=== PATIENT | female | born 1935 | race Caucasian/White ===

== ENCOUNTER 2020-03-12 08:50 | Inpatient (IN) | payer MEDICARE ==
--- NOTE | 2020-03-12 09:11 | RADIOLOGY REPORT (SQ) ---
EXAM DESCRIPTION: CT HEAD WITHOUT IMAGES COMPLETED DATE/TIME: 03/12/2020 9:01 am REASON FOR STUDY: STROKE ALERT COMPARISON: None. TECHNIQUE: Axial images acquired through the brain without intravenous contrast. Images reviewed wi th bone, brain and subdural windows. Additional sagittal and coronal reconstructions were generated. Images stored on PACS. All CT scanners at this facility use dose modulation, iterative reconstruction, and/or weight based d osing when appropriate to reduce radiation dose to as low as reasonably achievable (ALARA). [facility]: Dose Right [facility]: CareDose [facility]: Dose Right [facility]: Teradose 4D [facility]: [email or web address] RADIATION DOSE: mGy. LIMITATIONS: None. FINDINGS: VENTRICLES: Prominent. CEREBRUM: No masses. No hemorrhage. No midline shift. Areas of low density in the white matter mos t likely due to chronic micro-vascular ischemic change. No evidence for acute infarction. CEREBELLUM: No masses. No hemorrhage. No alteration of density. No evidence for acute infarction. EXTRAAXIAL SPACES: Age-related involutional change. No fluid collections. No masses. ORBITS AND GLOBE: No intra- or extraconal masses. Normal contour of globe without masses. CALVARIUM: No fracture. PARANASAL SINUSES: No fluid or mucosal thickening. SOFT TISSUES: No mass or hematoma. OTHER: No other significant finding. IMPRESSION: CHRONIC CHANGES OF ATROPHY AND MICROVASCULAR ISCHEMIA. NO ACUTE PROCESS. EVIDENCE OF ACUTE STROKE: NO. COMMENT: Pertinent positive or negative findings of the imaging study reported as a CRITICAL EXAM t porsha Kumar at09:03 on 03/12/2020. Category of Critical Exam: Stroke protocol TECHNICAL DOCUMENTATION: JOB ID: [id number] Quality ID # [id number]: Final reports with documentation of one or more dose reduction techniques (e.g., Au tomated exposure control, adjustment of the mA and/or kV according to patient size, use of iterative reconstruction technique) 2010 [employer]- All Rights Reserved Reading location - IP/workstation name: [email or web address]
--- NOTE | 2020-03-12 09:17 | ER Document Report ---
ED Neuro Symptoms/Deficit - General Chief Complaint: S/S of Possible Stroke Stated Complaint: POSSIBLE STROKE Time Seen by Provider: 03/12/20 09:07 Primary Care Provider: ALEXI GRIGGS MD [HONORARY] - Follow up as needed Notes: 84-year-old female was brought in via EMS for black tarry stool and abdominal pain. While the patient was getting on the stretcher she stood up and had a syncopal episode. After that she was slurring her speech. This has nearly resolved. EMS called a stroke alert. The patient complains of epigastric abdominal pain. Denies any extremity numbness tingling or weakness. She has a history of dementia. She is to her baseline. The patient denies any fever chills cough or sore throat. Denies nausea vomiting but has had loose stools. States the stools are black and tarry like. The patient denies a history of abdominal pain but I do not think she is reliable due to her dementia. D escribes the pain as burning in her epigastrium. It is severe does not radiate. - Related Data Allergies/Adverse Reactions: No Known Allergies Allergy (Unverified 03/12/20 09:44) Past Medical History - Social History Smoking Status: Unknown if Ever Smoked Family History: Reviewed & Not Pertinent Review of Systems - Review of Systems Constitutional: denies: Chills, Fever Cardiovascular: denies: Chest pain Respiratory: Stridor Gastrointestinal: Abdomen distended, Abdominal pain, Diarrhea, Nausea, Vomiting, Black stools Genitourinary: denies: Hematuria Skin: No symptoms reported Neurological/Psychological: Lost consciousness, Speech impairment -: Yes All other systems reviewed and negative Physical Exam - Vital signs Vitals: Pulse Ox 100 03/12/20 08:51 - Notes Notes: GENERAL_APPEARANCE: well_nourished, alert, cooperative, acutely ill-appearing VITALS: reviewed, see vital signs table. HEAD: no_swelling\tenderness on the head. EYES: PERRL, EOMI, conjunctiva_clear. NOSE: no_nasal_discharge. MOUTH: (-)decreased moisture. THROAT: no_tonsilar_inflammation, no_airway_obstruction. no_lymphadenopathy NECK: supple, no_neck_tenderness, (-)thyromegaly. BACK: no_back_tenderness. CHEST_WALL: no_chest_tenderness. LUNGS: no_wheezing, no_rales, no_rhonchi, (-)accessory muscle use, good air exchange bilateral. HEART: normal_rate, normal_rhythm, normal_S1, normal_S2, (-)S3, (-)S4, no_m urmur, no_rub. ABDOMEN: Severe abdominal pain all 4 quadrants mainly epigastrium. No rebound or guarding is noted EXTREMITIES: good pulses in all_extremities, no_swelling\tenderness in the extremities, no_edema. SKIN: warm, dry, pale_color, no_rash. MENTAL_STATUS: speech_clear, oriented_7 place but not time, normal_affect, responds_appropriately to questions. NEURO: Neg Motor or Sensory Deficits on exam, CN 2-12 intact, DTR 2+ symmetric x 4, No cerbellar signs Course - Re-evaluation Re-evalutation: 03/12/20 09:16 84-year-old female presents to the ER with black tarry stools and severe abdominal pain. When the patient stood up the patient had a syncopal episode. When the patient awoke she slurred her speech EMS called a stroke alert. Patient seems baseline when I see her here. NIH stroke scale is 0. Her abdomen is exquisitely tender. The patient has black tarry stools. I do not believe this to be a stroke likely she slurred her speech after syncope. With any kind of diarrhea or vomiting she may be dry and dehydrated and orthostatic. Chest x-ray shows free intraperitoneal air. We will give the patient IV antibiotics and a dose of IV Protonix. Will contact surgery. 03/12/20 10:26 The patient has been giving IV Protonix we will transfuse with blood. IV fluids. I have given IV Protonix. Have spoken with surgery Dr. Molina. He will see the patient but due to the patient's age and comorbidities he would like medicine to admit. I have spoken with Dr. Vilchis. He requests an abdominal CT and will happily admit. - Vital Signs Vital signs: Temp Pulse Resp BP Pulse Ox 96.6 F L 25 H 110/56 L 99 03/12/20 09:46 03/12/20 09:31 03/12/20 09:31 03/12/20 09:31 - Laboratory Result Diagrams: 03/12/20 09:20 03/12/20 09:20 Laboratory results interpreted by me: 03/12/20 03/12/20 03/12/20 09:20 09:20 09:20 WBC 17.8 H RBC 2.93 L Hgb 7.6 L Hct 24.7 L MCH 25.8 L MCHC 30.6 L RDW 18.8 H Plt Count 459 H Seg Neuts % (Manual) 81 H Band Neutrophils % 2 L Lymphocytes % (Manual) 10 L Abs Neuts (Manual) 14.8 H APTT 22.2 L Sodium 127.0 L Potassium 3.3 L Carbon Dioxide 17 L BUN 30 H Est GFR ( Amer) 55 L Est GFR (MDRD) Non-Af 46 L Glucose 207 H POC Glucose Creatine Kinase 23 L Total Protein 5.6 L Albumin 3.0 L Crossmatch 03/12/20 03/12/20 09:20 09:23 WBC RBC Hgb Hct MCH MCHC RDW Plt Count Seg Neuts % (Manual) Band Neutrophils % Lymphocytes % (Manual) Abs Neuts (Manual) APTT Sodium Potassium Carbon Dioxide BUN Est GFR ( Amer) Est GFR (MDRD) Non-Af Glucose POC Glucose 205 H Creatine Kinase Total Protein Albumin Crossmatch See Detail - Diagnostic Test Radiology reviewed: Image reviewed Radiology results interpreted by me: 03/12/20 10:26 Chest X-Ray 03/12/20 00:00 IMPRESSION: 1. No acute findings in the chest. 2. Extensive pneumoperitoneum consistent with ruptured viscus. Head CT 03/12/20 00:00 IMPRESSION: CHRONIC CHANGES OF ATROPHY AND MICROVASCULAR ISCHEMIA. NO ACUTE PROCESS. EVIDENCE OF ACUTE STROKE: NO. Critical Care Note - Critical Care Note Total time excluding time spent on procedures (mins): 33 Discharge - Discharge Clinical Impression: Free intraperitoneal air, Acute upper GI bleeding Condition: Fair Disposition: ADMITTED INPATIENT Admitting Provider: Eleanor (Hospitalist) Unit Admitted: IMCU Referrals: ALEXI GRIGGS MD [HONORARY] - Follow up as needed
[2020-03-12] MEDS ORDERED: PIPERACILLIN/TAZOBACTAM 3.375 GM VIAL IV ONE (09:18)
[2020-03-12] MEDS ORDERED: PANTOPRAZOLE SODIUM 40 MG VIAL IV ONE ×2 (09:18→12:49)
--- NOTE | 2020-03-12 09:20 | RADIOLOGY REPORT (SQ) ---
EXAM DESCRIPTION: CHEST SINGLE VIEW IMAGES COMPLETED DATE/TIME: 03/12/2020 9:12 am REASON FOR STUDY: STROKE ALERT COMPARISON: None. EXAM PARAMETERS: NUMBER OF VIEWS: One view. TECHNIQUE: Single frontal radiographic view of the chest acquired. RADIATION DOSE: NA LIMITATIONS: None. FINDINGS: LUNGS AND PLEURA: No opacities, masses or pneumothorax. No pleural effusion. MEDIASTINUM AND HILAR STRUCTURES: No masses. Contour normal. HEART AND VASCULAR STRUCTURES: Heart normal in size. Normal vasculature. BONES: No acute findings. HARDWARE: None in the chest. OTHER: Extensive pneumoperitoneum consistent with perforated viscus. IMPRESSION: 1. No acute findings in the chest. 2. Extensive pneumoperitoneum consistent with ruptured viscus. COMMENT: Pertinent findings on the imaging study reported as a CRITICAL RESULT to Dr. Kumar At09:1 4 on 03/12/2020. Category of Critical Result: Pneumoperitoneum TECHNICAL DOCUMENTATION: JOB ID: [id number] 2010 [employer]- All Rights Reserved Reading location - IP/workstation name: [email or web address]
[2020-03-12 09:40] LABS: INTERNATIONAL RATION (INR) 1.08; PARTIAL THROMBOPLASTIN TIME 22.2 SEC (23.5-35.8)
[2020-03-12] MEDS ORDERED: ONDANSETRON HCL INJ/PF 4 MG/2 ML SDV IV ONE (09:43)
[2020-03-12] MEDS ORDERED: FENTANYL CITRATE INJ/PF 100 MCG/2 ML AMPUL IV ONE (09:43)
[2020-03-12 09:48] LABS: HEMATOCRIT 24.7 % (36.0-47.0); MEAN CORPUSCULAR HEMOGLOBIN 25.8 pg (27.0-33.4); MEAN CORPUSCULAR HGB CONC 30.6 g/dL (32.0-36.0); MEAN CORPUSCULAR VOLUME 84 fl (80-97); RED BLOOD COUNT 2.93 10^6/uL (3.72-5.28); RED CELL DISTRIBUTION WIDTH 18.8 % (11.5-14.0); WHITE BLOOD COUNT 17.8 10^3/uL (4.0-10.5)
[2020-03-12 09:52] LABS: HEMOGLOBIN 7.6 g/dL (12.0-15.5)
[2020-03-12 10:00] LABS: APPEARANCE,URINE CLEAR; BILIRUBIN,URINE NEGATIVE (NEGATIVE); COLOR,URINE YELLOW; GLUCOSE, URINE NEGATIVE (NEGATIVE); KETONES,URINE NEGATIVE (NEGATIVE); LEUKOCYTE ESTERASE,URINE NEGATIVE (NEGATIVE); NITRITE,URINE NEGATIVE (NEGATIVE); PROTEIN,URINE NEGATIVE (NEGATIVE); URINE SPECIFIC GRAVITY 1.014; UROBILINOGEN,URINE NEGATIVE mg/dL (<2.0)
[2020-03-12 10:03] LABS: ALKALINE PHOSPHATASE 46 U/L (38-126); ANION GAP 11 (5-19); ASPARTATE AMINO TRANSFERASE 14 U/L (14-36); BILIRUBIN,TOTAL 0.2 mg/dL (0.2-1.3); BLOOD UREA NITROGEN 30 mg/dL (7-20); CALCIUM 8.6 mg/dL (8.4-10.2); CARBON DIOXIDE 17 mmol/L (22-30); CHLORIDE 99 mmol/L (98-107); CREATINE KINASE 23 U/L (30-135); GLUCOSE 207 mg/dL (75-110); POTASSIUM 3.3 mmol/L (3.6-5.0); TOTAL PROTEIN 5.6 g/dL (6.3-8.2)
[2020-03-12 10:13] LABS: CREATINE KINASE MB 1.02 ng/mL (<4.55)
[2020-03-12 10:15] LABS: ABSOLUTE MONOCYTES # (MANUAL) 1.1 10^3/uL (0.1-1.4); BAND NEUTROPHILS % (MANUAL) 2 % (3-5); BASOPHILS % (MANUAL) 0 % (0-2); EOSINOPHILS % (MANUAL) 0 % (0-6); LYMPHOCYTES % (MANUAL) 10 % (13-45); MONOCYTES % (MANUAL) 6 % (3-13); NUCLEATED RED BLOOD CELLS 2 /100 WBC (0); SEGMENTED NEUTROPHILS % (MAN) 81 % (42-78); TOTAL CELLS COUNTED 100
[2020-03-12] MEDS ORDERED: NORMAL SALINE 250 ML IV PRN ×2 (10:16)
[2020-03-12 10:18] LABS: ANISOCYTOSIS 2+; BURR CELLS 2+; HYPOCHROMASIA 1+; OVALOCYTES 2+; PLATELET COMMENT INCREASED; POIKILOCYTOSIS 2+; POLYCHROMASIA 1+; SCHISTOCYTES 1+; TEAR DROP CELLS 1+
[2020-03-12 10:19] LABS: PLATELET CLUMPS PRESENT; PLATELET COUNT 459 10^3/uL (150-450); TROPONIN I < 0.012 ng/mL
[2020-03-12] MEDS ORDERED: NORMAL SALINE 1000 ML 1,000 ML IV ONE (10:21)
--- NOTE | 2020-03-12 11:09 | PDOC H&P ---
History of Present Illness Admission Date/PCP: DARY ZAMARRIPA MD Patient complains of: Abdominal pain History of Present Illness: MELVIN PHILLIPS is a 84 year old female Patient presents the emergency department via ground rescue according to patient's daughter, Shanice, at bedside because of a progressive weakness, anorexia, progressive abdominal pain, and low blood pressure. According to patient's daughter, over a week ago the patient was in her usual state of acceptable health, living alone, but next to her house, with dementia. Last week patient became weaker, and was seen on 2 occasions by patient's primary care in [place]. Studies were done, started on low-dose thyroid medication and IV fluids were given. Patient was to follow-up with PCP in 2 weeks. Over the weekend patient continued to climb, and this morning patient was very weak, and apparently massive bowel movement. Patient was brought by ground rescue who initially thought patient was having a stroke, so a CT scan of the head was performed which showed no evidence of acute pathology. Chest x-ray showed bilateral subdiaphragmatic air. Surgery was consulted. Patient was evaluated, because of multiple comorbidities, and felt to be an appropriate candidate for admission to the hospital service with surgery consulting. Of note patient has never had a colonoscopy. Patient is a DNR according to patient's daughter who is the healthcare power of disability attorney. Past Medical History Past Medical History: Hypertension, dementia Cardiac Medical History: Reports: Hypertension Past Surgical History Past Surgical History: Ophthalmologic surgery Past Surgical History: Reports: Orthopedic Surgery - lt knee patella fx w/ repair, Tubal Ligation Social History Information Source: Legal Guardian Smoking Status: Unknown if Ever Smoked Electronic Cigarette use?: No Hx Recreational Drug Use: No Hx Prescription Drug Abuse: No Family History Family History: None, Reviewed & Not Pertinent Parental Family History Reviewed: No Children Family History Reviewed: No Sibling(s) Family History Reviewed.: No Medication/Allergy Allergies/Adverse Reactions: No Known Allergies Allergy (Unverified 03/12/20 09:44) Review of Systems ROS unobtainable: Due to mental status, Other - Patient is severely demented; she is moaning in pain. Constitutional: PRESENT: as per HPI Integumentary: PRESENT: other - Does not ambulate with an assistive device Physical Exam Vital Signs: Temp Pulse Resp BP Pulse Ox 96.6 F L 20 100/41 L 100 03/12/20 09:46 03/12/20 10:31 03/12/20 10:31 03/12/20 10:31 Intake & Output 03/11/20 03/12/20 03/13/20 06:59 06:59 06:59 Weight 57.7 kg General appearance: PRESENT: other - Moderate distress Head exam: PRESENT: normocephalic Eye exam: PRESENT: other - Pupils pinpoint Mouth exam: PRESENT: other - Dry mucosa Neck exam: PRESENT: other - No adenopathy Respiratory exam: PRESENT: other - Diminished breath sounds bilaterally Cardiovascular exam: PRESENT: RRR, other - No tachycardia Breast: PRESENT: Other - Atrophic GI/Abdominal exam: PRESENT: other - Diffusely tender with guarding, not distended Rectal exam: PRESENT: deferred Extremities exam: PRESENT: +1 edema Musculoskeletal exam: PRESENT: other - No obvious bony step-offs Neurological exam: PRESENT: other - Patient disoriented to person place situation and time. Complaining of abdominal pain seen in complete sentences Psychiatric exam: PRESENT: anxious Focused psych exam: PRESENT: other - Agitated Skin exam: PRESENT: dry Results Laboratory Results: 03/12/20 09:20 03/12/20 09:20 03/12/20 03/12/20 03/12/20 09:20 09:20 09:20 WBC 17.8 H RBC 2.93 L Hgb 7.6 L Hct 24.7 L MCV 84 MCH 25.8 L MCHC 30.6 L RDW 18.8 H Plt Count 459 H Seg Neutrophils % Not Reportable Sodium 127.0 L Potassium 3.3 L Chloride 99 Carbon Dioxide 17 L Anion Gap 11 BUN 30 H Creatinine 1.13 Est GFR ( Amer) 55 L Glucose 207 H Calcium 8.6 Total Bilirubin 0.2 AST 14 Alkaline Phosphatase 46 Total Protein 5.6 L Albumin 3.0 L Urine Color Urine Appearance Urine pH Ur Specific [place] Urine Protein Urine Glucose (UA) Urine Ketones Urine Blood Urine Nitrite Ur Leukocyte Esterase Urine WBC (Auto) Urine RBC (Auto) Blood Type A POSITIVE Antibody Screen NEGATIVE 03/12/20 09:45 WBC RBC Hgb Hct MCV MCH MCHC RDW Plt Count Seg Neutrophils % Sodium Potassium Chloride Carbon Dioxide Anion Gap BUN Creatinine Est GFR ( Amer) Glucose Calcium Total Bilirubin AST Alkaline Phosphatase Total Protein Albumin Urine Color YELLOW Urine Appearance CLEAR Urine pH 6.0 Ur Specific [place] 1.014 Urine Protein NEGATIVE Urine Glucose (UA) NEGATIVE Urine Ketones NEGATIVE Urine Blood NEGATIVE Urine Nitrite NEGATIVE Ur Leukocyte Esterase NEGATIVE Urine WBC (Auto) 1 Urine RBC (Auto) 0 Blood Type Antibody Screen 03/12/20 03/12/20 09:20 09:20 Creatine Kinase 23 L CK-MB (CK-2) 1.02 Troponin I < 0.012 Impressions: Chest X-Ray 03/12/20 00:00 IMPRESSION: 1. No acute findings in the chest. 2. Extensive pneumoperitoneum consistent with ruptured viscus. Head CT 03/12/20 00:00 IMPRESSION: CHRONIC CHANGES OF ATROPHY AND MICROVASCULAR ISCHEMIA. NO ACUTE PROCESS. EVIDENCE OF ACUTE STROKE: NO. Assessment & Plan - Diagnosis (1) Sepsis Is this a current diagnosis for this admission?: Yes Plan: Impression: Acute intra-abdominal sepsis likely due to perforated viscus based on clinical history, radiographic findings and laboratory profile Recommendations: 1. Admit to hospital service, n.p.o., IV fluids, intravenous antibiotics. 2. I have spoken with patient's daughter, Shanice, who is patient's healthcare power of disability attorney. She states that patient has a normal DNR. I told Shanice that patient's DNR status would need to be operationalized now that patient is in the hospital. We will discuss this with her brothers very soon. She will also discuss it with her [id number] who is a nurse at [facility] [employer]. 3. Dr. Webster has ordered a CT scan of the abdomen and pelvis to further define pathoanatomy 4. If patient's family wishes suspend DNR status, and proceed with aggressive therapy, then we would consider exploratory laparotomy, necessary surgery. This was discussed briefly with patient's daughter at bedside this morning. 5. We will obtain a rapid COVID test. (2) Severe dementia Is this a current diagnosis for this admission?: Yes (3) Hyponatremia Is this a current diagnosis for this admission?: Yes (4) Acute renal injury Is this a current diagnosis for this admission?: Yes (5) Heme positive stool Is this a current diagnosis for this admission?: Yes (6) Acute kidney injury Is this a current diagnosis for this admission?: Yes - Time Time Spent: 30 to 50 Minutes Critical Time spent with patient: 15-24 minutes Medications reviewed and adjusted accordingly: Yes - Inpatient Certification Based on my medical assessment, after consideration of the patient's comorbidities, presenting symptoms, or acuity I expect that the services needed warrant INPATIENT care.: Yes I certify that my determination is in accordance with my understanding of Medicare's requirements for reasonable and necessary INPATIENT services [42 CFR 412.3e].: Yes Medical Necessity: Need For IV Fluids, Need for Pain Control, Need for IV Antibiotics, Need for Surgery
--- NOTE | 2020-03-12 12:33 | RADIOLOGY REPORT (SQ) ---
EXAM DESCRIPTION: CT ABD/PELVIS NO ORAL OR IV IMAGES COMPLETED DATE/TIME: 03/12/2020 11:45 am REASON FOR STUDY: FREE AIR - ABD PAIN COMPARISON: None. TECHNIQUE: CT scan of the abdomen and pelvis performed without intravenous or oral contrast. Images reviewed with lung, soft tissue, and bone windows. Reconstructed coronal and sagittal MPR images revi ewed. All images stored on PACS. All CT scanners at this facility use dose modulation, iterative reconstruction, and/or weight based d osing when appropriate to reduce radiation dose to as low as reasonably achievable (ALARA). [facility]: Dose Right [facility]: CareDose [facility]: Dose Right [facility]: Teradose 4D [facility]: [employer] RADIATION DOSE: CT Rad equipment meets quality standard of care and radiation dose reduction techniq ues were employed. CTDIvol: 9.9 mGy. DLP: 535 mGy-cm.mGy. LIMITATIONS: None. FINDINGS: LOWER CHEST: Sizable hiatal hernia. NON-CONTRASTED LIVER, SPLEEN, ADRENALS: Evaluation limited by lack of IV contrast. No identified sign ificant masses. PANCREAS: No masses. No peripancreatic inflammatory changes. GALLBLADDER: No identified stones by CT criteria. No inflammatory changes to suggest cholecystitis. RIGHT KIDNEY AND URETER: No solid masses. No significant calcification. No hydronephrosis or hydroure ter. LEFT KIDNEY AND URETER: No solid masses. No significant calcification. No hydronephrosis or hydrouret er. AORTA AND RETROPERITONEUM: Dense aortic calcification without aneurysm. BOWEL AND PERITONEAL CAVITY: Mild-moderate ascites. Fair amount of free air in the upper abdomen. S uspicious for ulcer along the lower anterior stomach (please see axial image 31/196). Note is also m gianna of a thick-walled appearance of the proximal jejunum in the left abdomen. No clear perforation o f viscus here. APPENDIX: Not visualized. PELVIS, BLADDER, AND ABDOMINAL WALL:Moderate pelvic ascites. Urinary catheter in place. No abdomina l wall mass. BONES: Osteopenia and scoliosis. OTHER: No other significant finding. IMPRESSION: 1. Free air, as seen on recent radiographs. This may be related to what appears to be a gastric ulce r with perforation. 2. Thickening of proximal small bowel, jejunitis which is nonspecific. Pertinent findings on the imaging study reported as a CRITICAL RESULT to Dr Valles at12:25 on 2019. Category of Critical Result: Viscus perforation. TECHNICAL DOCUMENTATION: JOB ID: [id number] Quality ID # [id number]: Final reports with documentation of one or more dose reduction techniques (e.g., Au tomated exposure control, adjustment of the mA and/or kV according to patient size, use of iterative reconstruction technique) 2010 [employer]- All Rights Reserved Reading location - IP/workstation name: [email or web address]
[2020-03-12] MEDS ORDERED: PANTOPRAZOLE SODIUM 40 MG VIAL IV PRN (12:48)
[2020-03-12] MEDS ORDERED: MIDAZOLAM 2 MG/2 ML INJ ONE (13:49)
[2020-03-12] MEDS ORDERED: EPHEDRINE SULFATE INJ 50 MG/1 ML AMPULE ONE (13:49)
[2020-03-12] MEDS ORDERED: FENTANYL CITRATE INJ/PF 100 MCG/2 ML AMPUL ONE (13:49)
[2020-03-12] MEDS ORDERED: SUGAMMADEX SODIUM 200 MG/2 ML SDV IV ONE (13:50)
[2020-03-12] MEDS ORDERED: ONDANSETRON HCL INJ/PF 4 MG/2 ML SDV ONE (13:50)
[2020-03-12] MEDS ORDERED: PROPOFOL INJ 200 MG/20 ML VIAL IV ONE (13:50)
[2020-03-12] MEDS ORDERED: GLUCAGON,HUMAN RECOMB 1 MG INJ SUBCUT PRN (14:25)
[2020-03-12] MEDS ORDERED: DEXTROSE 50%-WATER 25 GM/50 ML DISP.SYRIN IV PRN ×2 (14:25)
[2020-03-12] MEDS ORDERED: DEXTROSE 40% GEL 15 GM TUBE PO PRN ×2 (14:25)
--- NOTE | 2020-03-12 14:40 | PDOC H&P ---
History of Present Illness Admission Date/PCP: 03/12/20 11:02 DARY ZAMARRIPA MD Patient complains of: Came to the emergency room with complaints of black tarry stool and abdominal pain. History of Present Illness: MELVIN PHILLIPS is a 84 year old female with history of dementia, hypertension was brought by EMS with complaints of black tarry stool and abdominal pain. Patient also had a syncopal episode this morning. Found to have slurred speech. Those symptoms are resolved. EMS called stroke alert. When she came to the emergency room complaining of severe abdominal pains. Passing black-colored stools tarry stools. CT head was negative. Patient CODE STATUS is DNR surgical consult was done for perforated viscus. CT scan suggestive of perforated gastric ulcer with a pneumoperitoneum. I had multiple conversations with the family about further management and they decided about making her comfort care measures only and not to proceed with the surgery at this time. Explained to the family in detail versus comfort care measures sees like giving IV morphine, IV Ativan, scopolamine patch and discontinue everything else they understood and verbalized the response. Past Medical History Cardiac Medical History: Reports: Hypertension Past Surgical History Past Surgical History: Reports: Orthopedic Surgery - lt knee patella fx w/ repair, Tubal Ligation Social History Smoking Status: Unknown if Ever Smoked Electronic Cigarette use?: No Hx Recreational Drug Use: No Hx Prescription Drug Abuse: No - Advance Directive Resuscitation Status: Comfort Measures Only Family History Family History: None, Reviewed & Not Pertinent Parental Family History Reviewed: Yes - hypertension Children Family History Reviewed: Yes Sibling(s) Family History Reviewed.: Yes Medication/Allergy Allergies/Adverse Reactions: No Known Allergies Allergy (Unverified 03/12/20 09:44) Review of Systems Constitutional: PRESENT: fatigue, weakness. ABSENT: fever(s), headache(s), night sweats Eyes: ABSENT: visual disturbances Ears: ABSENT: hearing changes Nose, Mouth, and Throat: ABSENT: sore throat Cardiovascular: ABSENT: chest pain, orthropnea, palpitations Gastrointestinal: PRESENT: abdominal pain, other - Tarry stools Genitourinary: ABSENT: dysuria, hematuria Musculoskeletal: ABSENT: joint swelling Neurological: PRESENT: syncope Psychiatric: ABSENT: anxiety, depression, homidical ideation, suicidal ideation Physical Exam Vital Signs: Temp Pulse Resp BP Pulse Ox 96.4 F L 72 18 107/70 100 03/12/20 12:15 03/12/20 12:15 03/12/20 13:16 03/12/20 13:16 03/12/20 13:16 Intake & Output 03/11/20 03/12/20 03/13/20 06:59 06:59 06:59 Intake Total 0 Balance 0 Weight 57.7 kg General appearance: PRESENT: cooperative, mild distress, thin Head exam: PRESENT: atraumatic Eye exam: PRESENT: PERRLA Ear exam: PRESENT: normal external ear exam Mouth exam: PRESENT: neck supple Teeth exam: PRESENT: poor dentation Neck exam: ABSENT: carotid bruit, JVD, lymphadenopathy, thyromegaly Respiratory exam: PRESENT: decreased breath sounds Cardiovascular exam: PRESENT: RRR. ABSENT: diastolic murmur, rubs, systolic murmur GI/Abdominal exam: PRESENT: guarding, hypoactive bowel sounds, tenderness Rectal exam: PRESENT: deferred Extremities exam: PRESENT: full ROM. ABSENT: calf tenderness, clubbing, pedal edema Neurological exam: PRESENT: CN II-XII grossly intact, other - Patient has ad vanced dementia Psychiatric exam: PRESENT: appropriate affect, normal mood. ABSENT: homicidal ideation, suicidal ideation Results Laboratory Results: 03/12/20 09:20 03/12/20 09:20 03/12/20 03/12/20 03/12/20 09:20 09:20 09:20 WBC 17.8 H RBC 2.93 L Hgb 7.6 L Hct 24.7 L MCV 84 MCH 25.8 L MCHC 30.6 L RDW 18.8 H Plt Count 459 H Seg Neutrophils % Not Reportable Sodium 127.0 L Potassium 3.3 L Chloride 99 Carbon Dioxide 17 L Anion Gap 11 BUN 30 H Creatinine 1.13 Est GFR ( Amer) 55 L Glucose 207 H Calcium 8.6 Total Bilirubin 0.2 AST 14 Alkaline Phosphatase 46 Total Protein 5.6 L Albumin 3.0 L Urine Color Urine Appearance Urine pH Ur Specific [place] Urine Protein Urine Glucose (UA) Urine Ketones Urine Blood Urine Nitrite Ur Leukocyte Esterase Urine WBC (Auto) Urine RBC (Auto) Blood Type A POSITIVE Antibody Screen NEGATIVE 03/12/20 09:45 WBC RBC Hgb Hct MCV MCH MCHC RDW Plt Count Seg Neutrophils % Sodium Potassium Chloride Carbon Dioxide Anion Gap BUN Creatinine Est GFR ( Amer) Glucose Calcium Total Bilirubin AST Alkaline Phosphatase Total Protein Albumin Urine Color YELLOW Urine Appearance CLEAR Urine pH 6.0 Ur Specific [place] 1.014 Urine Protein NEGATIVE Urine Glucose (UA) NEGATIVE Urine Ketones NEGATIVE Urine Blood NEGATIVE Urine Nitrite NEGATIVE Ur Leukocyte Esterase NEGATIVE Urine WBC (Auto) 1 Urine RBC (Auto) 0 Blood Type Antibody Screen 03/12/20 03/12/20 09:20 09:20 Creatine Kinase 23 L CK-MB (CK-2) 1.02 Troponin I < 0.012 Impressions: Chest X-Ray 03/12/20 00:00 IMPRESSION: 1. No acute findings in the chest. 2. Extensive pneumoperitoneum consistent with ruptured viscus. Head CT 03/12/20 00:00 IMPRESSION: CHRONIC CHANGES OF ATROPHY AND MICROVASCULAR ISCHEMIA. NO ACUTE PROCESS. EVIDENCE OF ACUTE STROKE: NO. Abdomen/Pelvis CT 03/12/20 10:25 IMPRESSION: 1. Free air, as seen on recent radiographs. This may be related to what appears to be a gastric ulcer with perforation. 2. Thickening of proximal small bowel, jejunitis which is nonspecific. Pertinent findings on the imaging study reported as a CRITICAL RESULT to Dr Valles at12:25 on 03/12/2020. Category of Critical Result: Viscus perforation. Assessment and Plan - Diagnosis (1) Acute upper GI bleeding Is this a current diagnosis for this admission?: Yes Plan: 03/12/2021-patient is admitted to medical floor as inpatient under comfort care measures only came in with a low hemoglobin. Hemoglobin is 7.6 black-colored stools present. Most likely acute upper GI bleed. CT scan suggestive for perforated gastric ulcer with a large pneumoperitoneum. Family decided to place the patient under comfort care measures only did not want any surgeries. (2) Free intraperitoneal air Is this a current diagnosis for this admission?: Yes Plan: 03/12/2020-CT scan of the abdomen indicates perforated gastric ulcer with pneumoperitoneum. Family decided not to proceed with the surgery. Surgical c onsult with Dr. Molina was done. Family also decided about comfort care measures only. (3) Severe dementia Is this a current diagnosis for this admission?: No Plan: 03/12/2020-patient has a severe advanced dementia. To place her on comfort care measures only as per the family request.. (4) Hyponatremia Is this a current diagnosis for this admission?: Yes Plan: 03/12/2020-serum sodium is 127 hyponatremia most likely secondary to poor oral intake. Patient is on comfort care measures. (5) Heme positive stool Is this a current diagnosis for this admission?: Yes Plan: 03/12/2020-patient came in with abdominal pain associated with tarry stools and stool guaiac was positive. Most likely secondary to acute upper GI bleed. - Time Anticipated discharge: Hospice Within: within 48 hours
[2020-03-12] MEDS: LORAZEPAM INJ 2 MG/1 ML VIAL IV PRN ×2 (15:33→20:12)
[2020-03-12] MEDS: MORPHINE SULFATE 10 MG/ML INJ IV PRN (20:24)
[2020-03-12 20:51] VITALS: BP 102/53
--- NOTE | 2020-03-12 21:16 | EKG REPORT ---
SEVERITY:- ABNORMAL ECG - SINUS RHYTHM INCOMPLETE RIGHT BUNDLE BRANCH BLOCK BORDERLINE PROLONGED QT INTERVAL : Confirmed by: Elmer Moreno MD 12-Mar-2020 21:15:17
[2020-03-13] MEDS ORDERED: SCOPOLAMINE HYDROBROMIDE 1.5 MG PATCH.TD72 ONE (01:36)
[2020-03-13] MEDS ORDERED: SCOPOLAMINE HYDROBROMIDE 1.5 MG PATCH.TD72 TD ONE (02:00)
[2020-03-13] MEDS: MORPHINE SULFATE 10 MG/ML INJ IV PRN (03:23)
[2020-03-13] MEDS: LORAZEPAM INJ 2 MG/1 ML VIAL IV PRN (04:01)
--- NOTE | 2020-03-13 08:38 | CDI QUERY ---
CDI Query CDI Review: We are seeking further clarification of documentation to reflect the severity of illness of your patient. Per Surgery H&P: Sepsis Is this a current diagnosis for this admission?: Yes Plan: Impression: Acute intra-abdominal sepsis likely due to perforated viscus based on clinical history, radiographic findings and laboratory profile Labs: WBC 17.8 H/H 7.6 / 24.7 Plt 459 Sodium 127 Potassium 3.3 Per H&P: Hemoglobin is 7.6 black-colored stools present. Most likely acute upper GI bleed. CT scan suggestive for perforated gastric ulcer with a large pneumoperitoneum Based on your medical judgement, can you further clarify in the Progress Notes: Sepsis present on admission Sepsis ruled out Sepsis resolved Unable to determine Other Based on your medical judgement, can you further clarify in the Progress Notes: Acute blood loss anemia Chronic blood loss anemia Anemia of chronic disease Unable to determine Other Thank you for your consideration. OSEAS Faustin RN Clinical [employer] Physician Advisor
[2020-03-15] MEDS ORDERED: SCOPOLAMINE HYDROBROMIDE 1.5 MG PATCH.TD72 TD SCH (10:00)
[2020-03-16] MEDS ORDERED: SCOPOLAMINE HYDROBROMIDE 1.5 MG PATCH.TD72 TD SCH (10:00)
--- NOTE | 2020-03-22 12:54 | Death Summary ---
Summary Date : 03/13/20 Time of :: 06:00 Autopsy: No Resuscitation Status: Comfort Measures Only - Final Diagnosis (1) Acute upper GI bleeding Is this a current diagnosis for this admission?: Yes (2) Free intraperitoneal air Is this a current diagnosis for this admission?: Yes (3) Severe dementia Is this a current diagnosis for this admission?: No (4) Hyponatremia Is this a current diagnosis for this admission?: Yes (5) Heme positive stool Is this a current diagnosis for this admission?: Yes (6) Severe anemia Is this a current diagnosis for this admission?: Yes Hospital Course:: 84-year-old female with history of dementia, hypertension brought to the ER by the EMS with complaints of passing black tarry stool and abdominal pains. Patient also has a syncopal episode at home. EMS initiated stroke alert because initially complaints of slurred speech. CT head was negative. Patient CODE STATUS is DNR/DNI and CT scans shows perforated viscus. Family decided about comfort care measures only. So surgery was canceled. Patient successfully around 6 PM next day on 03/13/2020. As per the family request no autopsy was requested. (1) Acute upper GI bleeding Is this a current diagnosis for this admission?: Yes Plan: 03/12/2021-patient is admitted to medical floor as inpatient under comfort care measures only came in with a low hemoglobin. Hemoglobin is 7.6 black-colored stools present. Most likely acute upper GI bleed. CT scan suggestive for perforated gastric ulcer with a large pneumoperitoneum. Family decided to place the patient under comfort care measures only did not want any surgeries. 03/13/2020-patient came in with hemoglobin of 7.6 and black-colored stools at the time of presentation patient has acute blood loss anemia secondary to upper GI bleed. (2) Free intraperitoneal air Is this a current diagnosis for this admission?: Yes Plan: 03/12/2020-CT scan of the abdomen indicates perforated gastric ulcer with pneumoperitoneum. Family decided not to proceed with the surgery. Surgical consult with Dr. Molina was done. Family also decided about comfort care measures only. (3) Severe dementia Is this a current diagnosis for this admission?: No Plan: 03/12/2020-patient has a severe advanced dementia. To place her on comfort care measures only as per the family request.. (4) Hyponatremia Is this a current diagnosis for this admission?: Yes Plan: 03/12/2020-serum sodium is 127 hyponatremia most likely secondary to poor oral intake. Patient is on comfort care measures. (5) Heme positive stool Is this a current diagnosis for this admission?: Yes Plan: 03/12/2020-patient came in with abdominal pain associated with tarry stools and stool guaiac was positive. Most likely secondary to acute upper GI bleed. 6-sepsis patient's WBC count is 17,800 at the time of presentation most likely secondary to stress related leukocytosis. Patient is hypotensive at the time of presentation may be secondary to acute blood loss anemia. Sepsis is very unlikely.
== END 2020-03-13 10:00 | disposition left against medical advice (07) | DRG 378 ==
LOC: ER 08:50 → EH 11:02 → 4S 15:02
PROVIDERS: ADMIT Internal Medicine; ATTEND Internal Medicine
PROC: 30233N1 Transfusion of Nonautologous Red Blood Cells into Peripheral Vein, Percutaneous Approach (ICD-10-PCS; principal; 2020-03-12)
DX: K25.2 Acute gastric ulcer with both hemorrhage and perforation (principal); E87.1 Hypo-osmolality and hyponatremia; N17.9 Acute kidney failure, unspecified; D62 Acute posthemorrhagic anemia; I10 Essential (primary) hypertension; R19.5 Other fecal abnormalities; Z66 Do not resuscitate; F03.90 Unspecified dementia, unspecified severity, without behavioral disturbance, psychotic disturbance, mood disturbance, and anxiety; R47.81 Slurred speech; Z11.59 Encounter for screening for other viral diseases
CPT/HCPCS: 36415; 36430; 70450; 71045; 74176; 80053; 81001; 82270; 82550; 82553; 82962; 84484; 85025; 85610; 85730; 86850; 86900; 86901; 86920; 87635; 93005; 93010; 96365; 96375; 99291; C9113; C9803; J2060; J2250; J2270; J2405; J2543; J2704; J3010; J3490; J7030; P9016